=== PATIENT | female | born 1980 | race Caucasian/White ===

== ENCOUNTER 2017-11-17 11:02 | Outpatient (CLI) | payer OTHER ==
[~2017-11-17 11:02] MED LIST: NAPR500T14 PO; PRENATAL TABLET1 TA1 PO
== END 2017-11-17 14:50 | disposition home or self-care (01) ==
LOC: SONOGRAMA 11:02 → RAD 11:02 → SONOGRAMA 14:50
DX: R31.21 Asymptomatic microscopic hematuria (principal)